=== PATIENT | male | born 1940 | race Caucasian/White ===

== ENCOUNTER → 2017-11-08 | Outpatient (CLI) | payer BC ==
[~2017-11-08] MED LIST: ACET1TAB84 PO; AMLO5TAB3 PO; CARB200T PO; CLTP PO; MELO15TA3 PO; MULT-506 PO; OMEG10007 PO; [UNRECOGNIZED DRUG - OTHER] PO; [UNRECOGNIZED DRUG - OTHER] PO
== END | disposition home or self-care (01) ==
LOC: C.RDSM 14:46
PROVIDERS: ATTEND Physical Medicine & Rehabilitation Sports Medicine
DX: M79.661 Pain in right lower leg (principal); M25.561 Pain in right knee; M25.562 Pain in left knee